=== PATIENT | male | born 1950 | race Caucasian/White ===

== ENCOUNTER 2021-03-26 18:30 | Emergency (ER) | payer BC, OTHER ==
[~2021-03-26] VITALS: Ht 170.2 cm; Wt 72.6 kg
[2021-03-26 18:30] VITALS: BP_SYST 105
--- NOTE | 2021-03-26 18:30 | NUR ---
BROUGHT IN BY [facility], PLACED IN BED #1 AND TRIAGED. REPORT GIVEN TO FREDRICK
--- NOTE | 2021-03-26 18:35 | NUR ---
Pt bib [facility] ambulance for hypotension at home, upon arrival pt presents with BP 98/61 and blood sugar 65. Pt given [place] juice for blood sugar, EKG completed at bedside, pt resting in r[place]akin awaiting MD evaluation
--- NOTE | 2021-03-26 18:40 | NUR ---
ER at bedside examining patient.
[2021-03-26] MEDS ORDERED: NACL 0.9% 1,000 ML IV ONE (18:45)
[2021-03-26] MEDS ORDERED: DEXTROSE 50% JECT 50 ML DISP.SYRIN ONE (19:00)
--- NOTE | 2021-03-26 19:00 | NUR ---
RECEIVED REPORT FROM KELLY ALCALA. WILL ASSUME ALL CARE. PATIENT AAOX3, VSS. AWAITING FOR LAB RESULTS AT THIS TIME. DENIES ANY PAIN. PATIENT RESTING COMFORTABLY.
[2021-03-26] MEDS: DEXTROSE 50% JECT 50 ML DISP.SYRIN IVP ONE ×2 (19:09→19:11)
[2021-03-26] MEDS ORDERED: DEXTROSE 50% JECT 50 ML DISP.SYRIN IVP ONE (19:15)
--- NOTE | 2021-03-26 19:20 | NUR ---
PORTABLE XRAY DONE AT BEDSIDE.
--- NOTE | 2021-03-26 19:25 | NUR ---
URINAL PROVIDED TO PATIENT. PATIENT STATED HE IS UNABLE TO URINATE AT THIS TIME. PO FLUIDS GIVEN AND IVF GIVEN WITHOUT DIFFICULTIES.
--- NOTE | 2021-03-26 19:32 | NUR ---
PATIENT TAKEN TO CT SCAN VIA WHEELCHAIR BY RADIOLOGY STAFF. AMBULATED WITHOUT DIFFICULTIES. VSS.
--- NOTE | 2021-03-26 19:58 | NUR ---
CDL A DRIVER AT BEDSIDE TO COLLECT BLOOD SPECIMEN.
[2021-03-26 20:09] LABS: BASOPHILS # (AUTO) 0.1 K/uL (0.0-0.2); BASOPHILS % (AUTO) 0.7 % (0.0-2.0); EOSINOPHILS # (AUTO) 0.1 K/uL (0.0-0.4); EOSINOPHILS % (AUTO) 0.8 % (0.0-4.0); HEMATOCRIT 38.7 % (36-54); HEMOGLOBIN 12.9 g/dL (14.0-18.0); LYMPHOCYTES # (AUTO) 2.6 K/uL (1.0-5.5); LYMPHOCYTES % (AUTO) 25.2 % (20.5-51.5); MEAN CORPUSCULAR HEMOGLOBIN 33 pg (27-31); MEAN CORPUSCULAR HGB CONC 33 % (32-36); MEAN CORPUSCULAR VOLUME 99 fL (79.0-98.0); MONOCYTES # (AUTO) 0.8 K/uL (0.0-1.0); MONOCYTES % (AUTO) 7.9 % (1.7-9.3); NEUTROPHILS # (AUTO) 6.8 K/uL (1.8-7.7); NEUTROPHILS % (AUTO) 65.4 % (40.0-70.0); PLATELET COUNT (AUTO) 355 K/uL (130-430); RED CELL DISTRIBUTION WIDTH 14.8 % (9.0-15.0); WHITE BLOOD COUNT (AUTO) 10.4 K/uL (4.8-10.8)
[2021-03-26 20:26] LABS: CREATININE 0.88 mg/dL (0.55-1.30); POTASSIUM 4.3 mmol/L (3.5-5.1)
[2021-03-26 20:32] LABS: ALBUMIN 3.1 g/dL (3.4-4.8); TOTAL BILIRUBIN 0.3 mg/dL (0.0-1.0)
[2021-03-26 20:52] LABS: INR 0.9 (0.80-1.20)
[2021-03-26 21:12] LABS: BILIRUBIN,URINE NEGATIVE (NEGATIVE); CLARITY/URINE CLEAR (CLEAR); COLOR,URINE YELLOW (YELLOW); GLUCOSE,URINE TRACE (NEGATIVE); KETONES,URINE NEGATIVE (NEGATIVE); LEUKOCYTE ESTERASE ,URINE NEGATIVE (NEGATIVE); NITRITE, URINE NEGATIVE (NEGATIVE); PROTEIN URINE NEGATIVE (NEGATIVE); UROBILINOGEN,URINE 0.2 (0.2-1.0)
[2021-03-26 21:25] LABS: BLOOD, URINE TRACE (NEGATIVE)
[2021-03-26 21:29] LABS: RBC,URINE 0-3 /HPF (0-3); WBC,URINE 0-3 /HPF (0-3)
[2021-03-26 21:30] LABS: BACTERIA,URINE FEW /HPF (None Seen); FINE GRANULAR CASTS,URINE 0-10 /LPF (None Seen); MUCUS,URINE 1+ /LPF (None Seen)
[2021-03-26 21:41] LABS: BARBITURATE, URINE NEGATIVE (NEG <=200); BENZODIAZEPINE, URINE NEGATIVE (NEG <=150); CANNABINOID, URINE NEGATIVE (NEG <=50); COCAINE, URINE NEGATIVE (NEG <=150); METHAMPHETAMINES SCREEN,URINE NEGATIVE (NEG <=500); OPIATE, URINE NEGATIVE (NEG <=100); PHENCYCLIDINE SCREEN,URINE NEGATIVE (NEG <=25); UR TRICYCLIC ANTIDEPRESSANTS NEGATIVE (NEG <=300); URINE AMPHETAMINE NEGATIVE (NEG <=500); URINE METHADONE NEGATIVE (NEG <=200); URINE OXYCODONE SCREEN NEGATIVE (NEG <=100); URINE PROPOXYPHENE SCREEN NEGATIVE (NEG <=300)
--- NOTE | 2021-03-26 21:47 | NUR ---
SPOKE TO PURA KARLYPAZ (MOTHER) [phone] REGARDING PICKING PATIENT UP. STATED SHE WILL CALL BROTHER TO [employer] PATIENT AND GIVE US A CALL BACK TO CONFIRM [employer].
[2021-03-26 22:20] VITALS: BP_SYST 120
--- NOTE | 2021-03-26 22:20 | NUR ---
Patient given written and verbal discharge instructions and verbalizes understanding. DR. ELSA ZABALA MD discussed with patient the results and treatment provided. Patient in stable condition. ID arm band removed. IV catheter removed intact and dressing applied, no active bleeding. Patient educated on pain management and to follow up with PMD. Pain Scale 0/10 Opportunity for questions provided and answered. Medication side effect fact sheet provided.
== END 2021-03-26 22:20 | disposition home or self-care (01) ==
LOC: SED 18:30
DX: F10.129 Alcohol abuse with intoxication, unspecified (principal); R73.9 Hyperglycemia, unspecified; I95.9 Hypotension, unspecified; Z88.0 Allergy status to penicillin; Z79.899 Other long term (current) drug therapy; Y90.6 Blood alcohol level of 120-199 mg/100 ml
CPT/HCPCS: 36415; 70450; 71045; 76376; 80053; 80307; 81000; 83605; 84484; 85025; 85610; 85730; 87040; 93005; 96361; 96374; 99285; G0482; J7030